=== PATIENT | male | born 1970 | race African-American/Black ===

== ENCOUNTER 2022-04-22 12:19 | Emergency (ER) | payer MEDICARE, OTHER ==
[~2022-04-22] VITALS: Ht 193 cm; Wt 103.4 kg
[2022-04-22 12:28] VITALS: BP 138/98
[2022-04-22] MEDS ORDERED: METO-624 PO (12:44)
--- NOTE | 2022-04-22 12:47 | NUR ---
51/M BIB SELF FOR MED REFILL OF METOPROLOL, STATES HE'S BEEN OUT FOR TWO DAYS AND HAS NOT BEEN ABLE TO SEE HIS PCP. DENIES ANY OTHER MEDICAL COMPLAINTS, BP IN TRIAGE 138/98. DENIES HEADACHE, CP, SOB OR DIZZINESS.
[2022-04-22 13:16] VITALS: BP 138/98
--- NOTE | 2022-04-22 13:17 | NUR ---
Patient discharged with v/s stable. Written and verbal after care instructions ABOUT HYPERTENSION AND MEDICATION REFILL given and explained. Patient alert, oriented and verbalized understanding of instructions. Ambulatory with steady gait. All questions addressed prior to discharge. ID band removed. Patient advised to follow up with PMD. Rx of METOPROLOL given. Patient educated on indication of medication including possible reaction and side effects. Opportunity to ask questions provided and answered.
== END 2022-04-22 13:17 | disposition home or self-care (01) ==
LOC: MED 12:19
DX: I10 Essential (primary) hypertension (principal); Z76.0 Encounter for issue of repeat prescription; Z79.899 Other long term (current) drug therapy; Z88.6 Allergy status to analgesic agent
CPT/HCPCS: 99281

== ENCOUNTER 2022-06-13 17:21 | Emergency (ER) | payer MEDICARE, OTHER ==
[~2022-06-13] VITALS: Ht 193 cm; Wt 104.8 kg
[~2022-06-13 17:21] MED LIST: METO-624 PO
[2022-06-13 17:31] VITALS: BP 144/90
[2022-06-13] MEDS ORDERED: MORPHINE SULFATE 4 MG/ML SYR IM ONE (17:50)
--- NOTE | 2022-06-13 18:24 | NUR ---
PT SENT TO XRAY THEN TO ER BED 7 VIA W/C
--- NOTE | 2022-06-13 19:06 | NUR ---
PT IN [facility]
--- NOTE | 2022-06-13 19:31 | NUR ---
PT WENT AND SAT IN BED 7 AFTER WE ASKED HIM TO MOVE D/T PT COMING IN. PT STATED HE WILL NOT MOVE, SECURITY CALLED, REFUSED TO MOVE. DELORIS SIMON SPOKE TO PT. PT IN LOBBY.
--- NOTE | 2022-06-13 20:57 | NUR ---
PATIENT ELOPED FROM FACILITY. DISCHARGE INSTRUCTIONS NOT GIVEN TO PATIENT. DR. JONES NOTIFIED.
== END 2022-06-13 20:57 | disposition left against medical advice (07) ==
LOC: MED 17:21
DX: M54.50 Low back pain, unspecified (principal); G89.29 Other chronic pain; I10 Essential (primary) hypertension; Z79.899 Other long term (current) drug therapy; Z88.6 Allergy status to analgesic agent
CPT/HCPCS: 72100; 96372; 99283; J2270

== ENCOUNTER 2022-08-16 13:31 | Emergency (ER) | payer MEDICARE, OTHER ==
[~2022-08-16] VITALS: Ht 193 cm; Wt 102.1 kg
[2022-08-16 13:47] VITALS: BP 152/98
--- NOTE | 2022-08-16 15:00 | NUR ---
52/M C/O HEADACHE, STATES HE "TAKES NORCO DAILY" WITH NO RELIEF. AAO4, AMBULATORY, DENIES NVD. PMH: HTN ALLERGIES: CODEINE
[2022-08-16] MEDS ORDERED: MORPHINE SULFATE 4 MG/ML SYR IM ONE (15:05)
--- NOTE | 2022-08-16 15:16 | NUR ---
PT MEDICATED. PER PT, COMING TO [employer] PATIENT. PT ADVISED TO STAY IN CHAIR UNTIL ARRIVES. PT IN CHAIR CALM AND RESTING
[2022-08-16 15:38] VITALS: BP 141/80
--- NOTE | 2022-08-16 15:38 | NUR ---
Patient discharged with v/s stable. Written and verbal after care instructions given and explained. Patient verbalized understanding. Ambulatory with steady gait. All questions addressed prior to discharge. Advised to follow up with PMD.
== END 2022-08-16 15:38 | disposition home or self-care (01) ==
LOC: MED 13:31
DX: M54.2 Cervicalgia (principal); H92.01 Otalgia, right ear; R51.9 Headache, unspecified; I10 Essential (primary) hypertension; Z79.899 Other long term (current) drug therapy; Z88.6 Allergy status to analgesic agent
CPT/HCPCS: 96372; 99283; J2270

== ENCOUNTER 2022-11-30 14:09 | Emergency (ER) | payer MEDICARE, OTHER ==
[~2022-11-30] VITALS: Ht 193 cm; Wt 98.4 kg
[2022-11-30 14:10] VITALS: BP 123/69
--- NOTE | 2022-11-30 15:22 | NUR ---
52 YO/M PRESENTS TO ED W C/O STITCHES COMING OFF TO X2 R HAND FINGERS (MIDDLE AND RING FINGER) AND GLUE COMING OFF WOUND TO PALM OF L HAND S/P TREATMENT AT [facility] THIS PAST MONDAY, +SWELLING TO THE MIDDLE FINGER. PT DENIES ANY DISCHARGE NO PUS OR BLEEDING. +ROM, +SENSATION, CAP REFIL <2SEC. DENIES FEVERS. PMH:HTN ALLERGIES: IBUPROFEN
[2022-11-30 15:38] VITALS: BP 124/93
== END 2022-11-30 15:38 | disposition home or self-care (01) ==
LOC: MED 14:09
DX: S61.402D Unspecified open wound of left hand, subsequent encounter (principal); S61.401D Unspecified open wound of right hand, subsequent encounter; S61.202D Unspecified open wound of right middle finger without damage to nail, subsequent encounter; I10 Essential (primary) hypertension; Z79.899 Other long term (current) drug therapy; Z88.6 Allergy status to analgesic agent; W26.8XXD Contact with other sharp object(s), not elsewhere classified, subsequent encounter
CPT/HCPCS: 99281

== ENCOUNTER 2022-12-05 09:34 | Emergency (ER) | payer MEDICARE, OTHER ==
[~2022-12-05] VITALS: Ht 193 cm; Wt 104.3 kg
[2022-12-05 09:59] VITALS: BP 144/109
--- NOTE | 2022-12-05 10:04 | NUR ---
PT AMBULATED TO ER BED 3
--- NOTE | 2022-12-05 10:30 | NUR ---
52/M WALKED IN RETURNING FOR SUTURE REMOVAL TO RIGHT HAND 3RD DIGIT. PT DENIES ANY PAIN OR DISCOMFORT AT THIS TIME. PMH: HTN ALLERGY: CODEINE, IBUPROFEN (HIVES)
[2022-12-05] MEDS ORDERED: BACI-416 TP (11:28)
[2022-12-05] MEDS ORDERED: IBUP-2213 PO (11:28)
[2022-12-05] MEDS ORDERED: CEPH-588 PO (11:28)
== END 2022-12-05 11:30 | disposition home or self-care (01) ==
LOC: MED 09:34
DX: T81.30XA Disruption of wound, unspecified, initial encounter (principal); L03.012 Cellulitis of left finger; I10 Essential (primary) hypertension; Z48.02 Encounter for removal of sutures; Z88.5 Allergy status to narcotic agent; Z88.6 Allergy status to analgesic agent; Z79.899 Other long term (current) drug therapy
CPT/HCPCS: 99283

== ENCOUNTER 2023-08-22 13:40 | Emergency (ER) | payer MEDICARE, OTHER ==
[~2023-08-22] VITALS: Ht 193 cm; Wt 106.6 kg
[~2023-08-22 13:40] MED LIST changes: +BACI-418 TP; +CEPH-588 PO; +IBUP-2213 PO
[2023-08-22 13:44] VITALS: BP 165/98; PULSE 91; RESP 18; TEMP 97.7; O2SAT 98
[2023-08-22] MEDS ORDERED: PROPARACAINE 0.5% OPTH 15 ML BTL OP ONE (14:00)
[2023-08-22] MEDS ORDERED: FLUORESCEIN OPTH STRIP 1 MG OP ONE (14:00)
[2023-08-22] MEDS ORDERED: MORPHINE SULFATE 4 MG/ML SYR IM ONE (14:50)
[2023-08-22] MEDS ORDERED: IBUP-2213 PO (15:26)
== END 2023-08-22 15:25 | disposition home or self-care (01) ==
LOC: MED 13:40
DX: S00.11XA Contusion of right eyelid and periocular area, initial encounter (principal); I10 Essential (primary) hypertension; Z98.890 Other specified postprocedural states; Z79.899 Other long term (current) drug therapy; Z79.1 Long term (current) use of non-steroidal anti-inflammatories (NSAID); Z79.2 Long term (current) use of antibiotics; Z88.5 Allergy status to narcotic agent; Z88.6 Allergy status to analgesic agent; W22.8XXA Striking against or struck by other objects, initial encounter; Y93.67 Activity, basketball; Y92.310 Basketball court as the place of occurrence of the external cause; Y99.8 Other external cause status
CPT/HCPCS: 96372; 99283; J2270